=== PATIENT | male | born 1940 | race Two or more races ===

== ENCOUNTER 2017-07-08 03:57 | Inpatient (IN) | payer MEDICARE, OTHER ==
[~2017-07-08] VITALS: Ht 170.2 cm; Wt 69.9 kg
--- NOTE | 2017-07-08 03:57 | NUR ---
TO BED 1 BIB PARAMEDICS C/O PALPITATION TONIGHT. PT AAOX4 NO ACUTE DISTRESS NOTED, RESP EVEN AND UNLABORED. NOTED PT HR-120'S AFIB ON THE MONITOR. PLACE PT ON CARDIAC MONITORING, CONTINUOUS POX. ER MD AT BEDSIDE TO EVAL PT WITH ORDERS RECEIVED. WILL CARRY OUT ORDERS.
[2017-07-08] MEDS ORDERED: DILTIAZEM HCL 25 MG IV ONE (04:18)
[2017-07-08 04:24] LABS: BASOPHILS % (AUTO) 0.9 % (0.0-2.0); EOSINOPHILS % (AUTO) 0.3 % (0.0-6.0); HEMATOCRIT 45 % (39-51); HEMOGLOBIN 14.8 g/dL (13.5-17.5); LYMPHOCYTES # (AUTO) 1.1 /CMM (0.8-4.8); LYMPHOCYTES % (AUTO) 20.7 % (20.0-44.0); MEAN CORPUSCULAR HEMOGLOBIN 31 PG (26.0-33.0); MEAN CORPUSCULAR HGB CONC 33 g/dl (31.0-36.0); MEAN CORPUSCULAR VOLUME 93 fL (80-96); MONOCYTES # (AUTO) 0.6 /CMM (0.1-1.30); NEUTROPHILS # (AUTO) 3.7 /CMM (1.8-8.9); NEUTROPHILS % (AUTO) 66.1 % (43.0-81.0); PLATELET COUNT (AUTO) 259 /CMM (150-450); RDW COEFFICIENT OF VARIATION 12.6 (11.5-15.0); RED BLOOD CELL COUNT(AUTO) 4.82 MIL/uL (4.5-6.0); WHITE BLOOD COUNT (AUTO) 5.4 K/uL (4.3-11.0)
[2017-07-08] MEDS ORDERED: CLOP75TA15 PO (04:24)
[2017-07-08] MEDS ORDERED: TAMS0.4C34 PO (04:24)
[2017-07-08] MEDS ORDERED: METO-356 PO (04:24)
[2017-07-08] MEDS ORDERED: ATOR40TA PO (04:24)
[2017-07-08] MEDS ORDERED: ASPI-1152 PO (04:24)
[2017-07-08] MEDS ORDERED: IV NS 0.9% 1,000 ML BAG IV ONE (04:30)
[2017-07-08] MEDS ORDERED: DILTIAZEM HCL 50 MG IV IV ONE (04:30)
--- NOTE | 2017-07-08 04:36 | NUR ---
ER MD AT BEDSIDE TALKING TO PT AND PT FAMILY MEMBERS REAGRDING HOSPITAL ADMISSION. PT AND PT FAMILY MEMEBRS AGREED. PENDING HOSPITAL ADMISSION.
[2017-07-08 04:39] LABS: CALCIUM, SERUM 7.7 mg/dL (8.5-10.1); CARBON DIOXIDE 27 mmol/L (21-32); CHLORIDE 107 mmol/L (98-107); CREATININE 1.5 mg/dL (0.6-1.3); GLUCOSE 143 mg/dL (74-106); POTASSIUM 4.3 mmol/L (3.5-5.1); SODIUM SERUM 141 mmol/L (136-145); UREA NITROGEN, BLOOD 18 mg/dL (7-18)
[2017-07-08 04:40] LABS: INR 0.98 (0.87-1.13); PROTHROMBIN TIME 10.2 SECS (9.5-12.7)
--- NOTE | 2017-07-08 04:42 | NUR ---
ROSI HANSON TALKING TO DR. QUINTERO REGARDING PT ADMISSION.
[2017-07-08 04:48] LABS: TROPONIN I 0.042 ng/mL (0.00-0.056)
[2017-07-08 04:52] LABS: B-TYPE NATRIURETIC PEPTIDE 1125 PG/ML (0-125)
[2017-07-08] MEDS ORDERED: IV NS 0.9% 1,000 ML IV PRN (05:14)
[2017-07-08] MEDS ORDERED: Z GUARD REMEDY 2 OZ OINT TP PRN ×2 (05:30→09:00)
[2017-07-08] MEDS ORDERED: MAGNESIUM HYDROXIDE 30 ML UDC PO PRN ×2 (05:30→09:00)
[2017-07-08] MEDS ORDERED: MAG HYDROX/AL HYDROX/SIMETH 30 ML UDC PO PRN ×2 (05:30→09:00)
[2017-07-08] MEDS ORDERED: ZOLPIDEM TARTRATE 5 MG TABLET PO PRN ×2 (05:30→09:00)
[2017-07-08] MEDS ORDERED: HYDROCODONE/APAP 5/325MG 1 EACH TABLET PO PRN ×2 (05:30→09:00)
[2017-07-08] MEDS ORDERED: ONDANSETRON HCL/PF 4 MG/2 ML VIAL IVP PRN ×2 (05:30→09:00)
[2017-07-08] MEDS ORDERED: ACETAMINOPHEN 325 MG TABLET PO PRN ×2 (05:30→09:00)
--- NOTE | 2017-07-08 05:56 | NUR ---
PT RESTING QUIETLY, NO ACUTE DISTRESS NOTED, RESP EVEN AND UNLABORED. CALL LIGHT EITHIN REACH. WILL CONTINUE TO MONITOR PT CLOSELY.
--- NOTE | 2017-07-08 06:59 | NUR ---
RN AT BEDSIDE TO MEDICATE PT.
--- NOTE | 2017-07-08 07:03 | NUR ---
REPORT GIVEN TO AM SHIFT MINNIE FREIRE.
--- NOTE | 2017-07-08 08:45 | NUR ---
REPORT GIVEN TO CAROLE HARTMAN FOR BERNA
[2017-07-08 09:00] VITALS: BP 97/65
[2017-07-08] MEDS ORDERED: ASPIRIN EC 81 MG TABLET.DR PO SCH (09:00)
[2017-07-08] MEDS ORDERED: CLOPIDOGREL BISULFATE 75 MG TABLET PO SCH (09:00)
--- NOTE | 2017-07-08 09:00 | NUR ---
WIL RN ADMITTING NOTES: REC'D REPORT FROM MINNIE FREIRE. PT ADMITTED TO ROOM 105, WIL STATUS. 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 PT IS A/O X4, DENIES ANY PAIN/DISCOMFORT. ON ROOM AIR, NO SOB. PLACED ON TELEMONITOR, NOTED UNCONTROLLED AFIB W/ HR 120'S. HAS 2 IV LINE ACCESS - R AC G18 AND L AC G20, SL, BOTH FLUSHED, PATENT & INTACT W/ NO S/SX OF INFECTION/INFILTRATION NOTED. ROUTINE ASSESSMENT DONE. NO SKIN ISSUES NOTED. PT ORIENTED TO ROOM. PROVIDED COMFORT & SAFETY MEASURES. BED KEPT LOW & IN LOCKED POS. CALL LIGHT PLACED W/IN REACH. FAMILY AT BEDSIDE. WILL CONTINUE TO MONITOR AND ATTEND PT NEEDS.
[2017-07-08] MEDS: ASPIRIN EC 81 MG TABLET.DR PO SCH (09:32)
[2017-07-08] MEDS: IV NS 0.9% 1,000 ML IV PRN (09:32)
[2017-07-08] MEDS: CLOPIDOGREL BISULFATE 75 MG TABLET PO SCH (09:32)
--- NOTE | 2017-07-08 10:00 | NUR ---
RN NOTES: PT SEEN & EXAMINED BY DR. BOBBY WITH ORDERS TO GIVE AMIODARONE BOLUS AND START AMIODARONE DRIP AFTER.
[2017-07-08] MEDS ORDERED: AMIODARONE 150 MG in IV D5W 100 ML IV ONE (10:30)
[2017-07-08] MEDS ORDERED: AMIODARONE 900 MG in IV D5W 482 ML IV PRN (10:30)
--- NOTE | 2017-07-08 10:52 | NUR ---
RN NOTES: PT SEEN & EXAMINED BY DR. MOSLEY W/ ORDERS MADE & CARRIED OUT.
[2017-07-08 12:00] VITALS: BP 110/82
[2017-07-08 15:01] LABS: CREATININE, URINE 56.5 MG/DL (30.0-125.0); URINE TOTAL PROTEIN 10.3 mg/dL (0-11.9)
[2017-07-08 15:15] LABS: APPEARANCE,URINE CLEAR (CLEAR); BILIRUBIN,URINE NEGATIVE (NEGATIVE); BLOOD, URINE 1+ Ery/uL (NEGATIVE); COLOR,URINE YELLOW (YELLOW); KETONES,URINE NEGATIVE (NEGATIVE); LEUKOCYTE ESTERASE ,URINE NEGATIVE (NEGATIVE); NITRITE, URINE NEGATIVE (NEGATIVE); PROTEIN,URINE NEGATIVE (NEGATIVE); UGLUCOSE NEGATIVE (NEGATIVE); UROBILINOGEN,URINE 0.2 EU/dL (0.2)
[2017-07-08 15:23] LABS: BACTERIA,URINE None seen /HPF (None Seen); SQUAMOUS EPITHELIAL CELL,UR Few /HPF (None Seen); WBC,URINE 0-2 /HPF (0-3)
[2017-07-08 16:00] VITALS: BP 120/77
[2017-07-08 16:06] LABS: EOSINOPHIL,URINE None Seen
--- NOTE | 2017-07-08 17:38 | NUR ---
RN NOTES: PT SEEN & EXAMINED BY DR. RAM W/ ORDERS MADE & CARRIED OUT.
[2017-07-08] MEDS ORDERED: TAMSULOSIN 0.4 MG CAP.SR.24H PO SCH ×2 (18:00)
[2017-07-08] MEDS: METOPROLOL TARTRATE 25 MG TABLET PO SCH (18:30)
--- NOTE | 2017-07-08 18:56 | NUR ---
WIL RN CLOSING NOTES: NO ACUTE CHANGES NOTED W/IN SHIFT. TOLERATED ROOM AIR, NO SOB. ON TELEMONITOR, STILL NOTED UNCONTROLLED AFIB W/ HR 120'S TO 140'S (DR. RAM MADE AWARE). 2 IV LINE ACCESS - R AC G18 AND L AC G20, SL, KEPT PATENT & INTACT W/ NO S/SX OF INFECTION/INFILTRATION NOTED. KEPT WELL RESTED. NEEDS ATTENDED. BED KEPT LOW & IN LOCKED POS. CALL LIGHT PLACED W/IN REACH. WILL ENDORSE TO PM RN FOR BERNA.
[2017-07-08] MEDS ORDERED: DIGOXIN INJ 0.5 MG/2 ML AMPUL IV ONE (19:30)
--- NOTE | 2017-07-08 19:30 | NUR ---
TD RN OPENING RECEIVED PATIENT. A/OX4 DENIES SOB, DIFFICULTY BREATHING OR PAIN AT THIS TIME. SITTING UP IN BED. CALLED PHARMACY TO HAVE DIG VERIFIED. PATIENT APPEARS STABLE. NEEDS IN REACH. TELE AFIB 114. BED LOWERED AND LOCKED, RAILS UPX3 FOR SAFETY AND CALL LIGHT IN REACH. WILL ROUND PRN NEEDED
[2017-07-08 20:00] VITALS: BP 132/70
[2017-07-08] MEDS ORDERED: ATORVASTATIN 40 MG TABLET PO SCH ×2 (22:00)
[2017-07-09] VITALS: BP 133/67
[2017-07-09] MEDS: DIGOXIN INJ 0.5 MG/2 ML AMPUL IV SCH ×2 (00:21→06:05)
[2017-07-09] MEDS: IV NS 0.9% 1,000 ML IV PRN (02:27)
[2017-07-09 04:00] VITALS: BP 106/63
--- NOTE | 2017-07-09 06:06 | NUR ---
TD RN NOTES PATIENT TELE NSR 68
--- NOTE | 2017-07-09 06:30 | NUR ---
TD RN CLOSING PATIENT STABLE NO COMPLICATIONS NOTED. ALL DUE MEDS GIVEN AND ALL NEEDS MET. CARE WILL BE ENDORSED TO RN FOR BERNA. PATIENT NEEDS IN REACH. BED LOWERED AND LOCKED, RAIL SUPX3 FOR SAFETY
--- NOTE | 2017-07-09 07:30 | NUR ---
WIL RN AM NOTES: PT IN BED, AAO X4 SLOVENIAN SPEAKING, ON RA, NAD, NO SOB, TELEMETRY READS SR WITH PAC HR 71, DENIES CHEST PAIN OR DISCOMFORT, LACT G18 IVH AND RT FA G 22 WITH NS AT 75 ML/HR, INFUSING WELL, BOTH SITES CLEAR. ROUTINE ASSESSMENT DONE. NO SKIN ISSUES NOTED. CALL LIGHT WITHIN REACH, PROVIDED COMFORT & SAFETY MEASURES. BED KEPT LOW & IN LOCKED POS. WILL CONTINUE TO MONITOR AND ATTEND PT NEEDS.
[2017-07-09 07:32] LABS: BASOPHILS % (AUTO) 0.4 % (0.0-2.0); EOSINOPHILS # (AUTO) 0.1 /CMM (0.0-0.7); EOSINOPHILS % (AUTO) 1.2 % (0.0-6.0); HEMATOCRIT 44 % (39-51); HEMOGLOBIN 15.1 g/dL (13.5-17.5); LYMPHOCYTES # (AUTO) 1.8 /CMM (0.8-4.8); LYMPHOCYTES % (AUTO) 25.1 % (20.0-44.0); MEAN CORPUSCULAR HEMOGLOBIN 32 PG (26.0-33.0); MEAN CORPUSCULAR HGB CONC 35 g/dl (31.0-36.0); MEAN CORPUSCULAR VOLUME 93 fL (80-96); MONOCYTES # (AUTO) 0.8 /CMM (0.1-1.30); MONOCYTES % (AUTO) 11.2 % (2.0-12.0); NEUTROPHILS # (AUTO) 4.4 /CMM (1.8-8.9); NEUTROPHILS % (AUTO) 62.1 % (43.0-81.0); PLATELET COUNT (AUTO) 240 /CMM (150-450); RDW COEFFICIENT OF VARIATION 13.2 (11.5-15.0); WHITE BLOOD COUNT (AUTO) 7.1 K/uL (4.3-11.0)
[2017-07-09 08:00] VITALS: BP 112/61
[2017-07-09 08:04] LABS: ALANINE AMINOTRANSFERASE 34 U/L (12-78); ALBUMIN 2.9 g/dL (3.4-5.0); ALKALINE PHOSPHATASE 76 U/L (46-116); ASPARTATE AMINOTRANSFERASE 33 U/L (15-37); BILIRUBIN,TOTAL 0.5 mg/dL (0.2-1.0); CALCIUM, SERUM 7.9 mg/dL (8.5-10.1); CARBON DIOXIDE 27 mmol/L (21-32); CHLORIDE 107 mmol/L (98-107); CREATININE 1.2 mg/dL (0.6-1.3); GLUCOSE 91 mg/dL (74-106); MAGNESIUM 1.8 mg/dL (1.8-2.4); PHOSPHORUS 3.1 mg/dL (2.5-4.9); POTASSIUM 4.1 mmol/L (3.5-5.1); SODIUM SERUM 141 mmol/L (136-145); TOTAL PROTEIN, SERUM 6.2 g/dL (6.4-8.2); UREA NITROGEN, BLOOD 16 mg/dL (7-18)
[2017-07-09 08:20] LABS: CREATINE KINASE, TOTAL 309 U/L (39-308)
[2017-07-09] MEDS: ASPIRIN EC 81 MG TABLET.DR PO SCH (09:03)
[2017-07-09] MEDS: METOPROLOL TARTRATE 25 MG TABLET PO SCH (09:03)
[2017-07-09] MEDS: CLOPIDOGREL BISULFATE 75 MG TABLET PO SCH (09:04)
--- NOTE | 2017-07-09 09:30 | NUR ---
WIL RN NOTES ADMINISTERED DUE MEDS.
[2017-07-09 11:04] LABS: CREATINE KINASE MB 5.7 ng/mL (0-3.6)
[2017-07-09 11:20] VITALS: BP_SYST 105; BP_SYST 109; BP_SYST 111; BP_DIAS 58; BP_DIAS 63; BP_DIAS 64
[2017-07-09 12:00] VITALS: BP 109/64
--- NOTE | 2017-07-09 12:43 | NUR ---
SHIPPING HAND NOTES DC WIL STATUS TO TELE PER DR. MAGALLON.
[2017-07-09] MEDS ORDERED: METO25TA20 PO (14:11)
--- NOTE | 2017-07-09 15:58 | NUR ---
CONTACT CENTER REP NOTES PATIENT DISCHARGED TO HOME PER MD IN STABLE CONDITION. PROVIDED DC INSTRUCTIONS, MED RECON LIST/PRESCRIPTION AND HEALTH TEACHINGS. PT TO FOLLOW UP WITH PCP IN 1-2 WEEKS. IV ACCESS TO RT AC AND RFA REMOVED, NO BLEEDING, DRESSING IN PLACE. ALL BELONGINGS CHECKED AND RETURNED ALL PAPER WORKS SIGNED. PATIENT TO GO HOME VIA PRIVATE CAR BY SON.
[2017-07-10] MEDS ORDERED: DIGOXIN 0.125 MG TABLET PO SCH (13:00)
[2017-07-10 13:11] LABS: PTH, INTACT 40 pg/mL (15-65)
[2017-07-12 07:06] LABS: *SPE A/G RATIO 1.4 (0.7-1.7); *SPE ALBUMIN 3.2 g/dL (2.9-4.4); *SPE ALPHA-1-GLOBULIN 0.2 g/dL (0.0-0.4); *SPE ALPHA-2-GLOBULIN 0.8 g/dL (0.4-1.0); *SPE BETA GLOBULIN 0.7 g/dL (0.7-1.3); *SPE GLOBULIN, TOTAL 2.3 g/dL (2.2-3.9); *SPE M-SPIKE Not Observed g/dL (Not Observed); *SPEGAMMA GLOBULIN 0.6 g/dL (0.4-1.8)
== END 2017-07-09 16:44 | disposition home or self-care (01) | DRG 308 ==
LOC: ER 04:01 → TELE-TD 08:53 → TELE1 07-09 11:45
PROVIDERS: ADMIT Internal Medicine; ATTEND Internal Medicine
DX: I48.2 Chronic atrial fibrillation (principal); N17.0 Acute kidney failure with tubular necrosis; I95.9 Hypotension, unspecified; D68.59 Other primary thrombophilia; E86.0 Dehydration; I25.10 Atherosclerotic heart disease of native coronary artery without angina pectoris; E78.5 Hyperlipidemia, unspecified; N18.9 Chronic kidney disease, unspecified; N40.0 Benign prostatic hyperplasia without lower urinary tract symptoms; Z86.73 Personal history of transient ischemic attack (TIA), and cerebral infarction without residual deficits; Z98.61 Coronary angioplasty status; R55 Syncope and collapse
CPT/HCPCS: 36415; 71045; 76770-TC; 80048-TC; 80053-TC; 81000-TC; 82550-TC; 82553-TC; 82570-TC; 83735-TC; 83880; 83970; 84100-TC; 84155; 84155-TC; 84165; 84300-TC; 84484-TC; 85025-TC; 85730-TC; 87081-TC; A4606; J0282; J1160; J3490; J7030; J7060; Z7610